=== PATIENT | male | born 1970 | race Caucasian/White ===

== ENCOUNTER 2017-04-08 04:25 | Inpatient (IN) | payer OTHER ==
[2017-04-08] VITALS (8 sets, daily range): BP systolic 124–135; BP diastolic 60–80; PULSE 75–92; RESP 17–18; TEMP 97.9–98.3; O2SAT 96–100
[2017-04-08 04:55] LABS: AUTOMATED NEUTROPHIL # 8.5 TH/MM3 (1.8-7.7); BASOPHIL % 0.3 % (0.0-2.0); EOSINOPHIL # 0.1 TH/MM3 (0-0.4); HEMATOCRIT 43.5 % (39.0-51.0); HEMO FLAGS DIFF FINAL; I-STAT POTASSIUM 4.1 MMOL/L (3.5-4.9); LYMPH % 27.2 % (9.0-44.0); LYMPHOCYTE # 3.6 TH/MM3 (1.0-4.8); MEAN CELL VOLUME 87.8 FL (80.0-100.0); MONO % 7.2 % (0.0-8.0); NEUT % 64.3 % (16.0-70.0); PLATELET COUNT 231 TH/MM3 (150-450); RED BLOOD COUNT 4.95 MIL/MM3 (4.50-5.90); RED CELL DISTRIBUTION WIDTH 13.2 % (11.6-17.2); WHITE BLOOD COUNT 13.3 TH/MM3 (4.0-11.0)
[2017-04-08] MEDS ORDERED: IOHEXOL 350 MG/ML 10 ML VIAL (for RAD DIAG) IVCONTRAST ONE (05:00)
[2017-04-08 05:05] LABS: APTT (PATIENT) 23.8 SEC (24.3-30.1); PROTHROMBIN TIME - PATIENT 10.5 SEC (9.8-11.6)
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
[2017-04-08] MEDS ORDERED: LACTATED RINGER'S 1000 ML INJ 1,000 ML IV SCH (05:24)
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
[2017-04-08] MEDS ORDERED: MISCELLANEOUS NURSING INFORMATION XX SCH (05:30)
[2017-04-08] MEDS ORDERED: ENALAPRILAT 1.25 MG/ML VIAL IV PRN (05:30)
[2017-04-08] MEDS ORDERED: ONDANSETRON HCL 4 MG/2 ML VIAL IV PRN (05:30)
[2017-04-08] MEDS ORDERED: SODIUM CHLORIDE 0.9% FLUSH 10 ML FLUSH IV FLUSH PRN (05:30)
[2017-04-08] MEDS ORDERED: MAGNESIUM HYDROXIDE SUSP 30 ML CUP PO PRN (05:30)
[2017-04-08] MEDS ORDERED: MORPHINE SULFATE 4 MG/ML INJ IV PRN (05:30)
[2017-04-08] MEDS ORDERED: ACETAMINOPHEN/HYDROcodone 325 MG/5 MG TAB PO PRN (05:30)
[2017-04-08] MEDS ORDERED: CHLORHEXIDINE GLUCONATE 2 % 1 PACK (2 CLOTHS) TOP PRN (05:30)
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
[2017-04-08] MEDS ORDERED: SODIUM CHLORIDE 0.9% FLUSH 10 ML FLUSH IVF PRN (05:45)
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
[2017-04-08] MEDS: ACETAMINOPHEN/HYDROcodone 325 MG/5 MG TAB PO PRN ×3 (06:26→21:49)
[2017-04-08] MEDS: METHOCARBAMOL 500 MG TAB PO SCH ×3 (07:45→21:48)
[2017-04-08] MEDS: SODIUM CHLORIDE 0.9% FLUSH 10 ML FLUSH IV FLUSH SCH ×2 (09:00→21:50)
[2017-04-08] MEDS: THIAMINE HCL 100 MG TAB PO SCH (09:00)
[2017-04-08] MEDS ORDERED: DOCUSATE SODIUM 100 MG CAP PO SCH (09:00)
[2017-04-08] MEDS: FAMOTIDINE 20 MG TAB PO SCH ×2 (09:00→21:48)
[2017-04-08] MEDS: MULTIVITAMIN TAB PO SCH (09:00)
[2017-04-08] MEDS: FOLIC ACID 1 MG TAB PO SCH (09:00)
[2017-04-08] MEDS: BACITRACIN TOP OINT 15 GM TUBE TOP SCH ×2 (09:01→21:49)
[2017-04-08] MEDS: LIDOCAINE HCL 5% PATCH T-DERMAL SCH (09:21)
[2017-04-08] MEDS ORDERED: LACTULOSE SYRUP 20 GM/30 ML CUP PO PRN (11:45)
[2017-04-08] MEDS ORDERED: SENN1TAB PO (15:45)
[2017-04-08] MEDS ORDERED: MAGN400S PO (15:45)
[2017-04-08] MEDS: ENOXAPARIN SODIUM 30 MG/0.3 ML SYRINGE SQ SCH (15:51)
[2017-04-08] MEDS ORDERED: REMOVE OLD LIDOCAINE PATCH T-DERMAL SCH (21:00)
[2017-04-08] MEDS: DOCUSATE SODIUM 50 MG/SENNA 8.6 MG TAB PO SCH (21:48)
[2017-04-09 01:57] VITALS: BP 135/68; PULSE 89; RESP 19; TEMP 98.1; O2SAT 96
[2017-04-09] MEDS: ENOXAPARIN SODIUM 30 MG/0.3 ML SYRINGE SQ SCH ×2 (02:59→13:00)
[2017-04-09] MEDS: ACETAMINOPHEN/HYDROcodone 325 MG/5 MG TAB PO PRN ×2 (02:59→15:35)
[2017-04-09] MEDS ORDERED: CHLORHEXIDINE GLUCONATE 2 % 1 PACK (2 CLOTHS) TOP SCH (04:00)
[2017-04-09 05:21] VITALS: BP 135/68; PULSE 65; RESP 17; TEMP 98.2; O2SAT 96
[2017-04-09] MEDS: METHOCARBAMOL 500 MG TAB PO SCH ×2 (05:28→14:00)
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
[2017-04-09 08:00] VITALS: BP 118/63; PULSE 83; RESP 18; TEMP 98.4; O2SAT 9
[2017-04-09 08:49] LABS: AUTOMATED NEUTROPHIL # 8.7 TH/MM3 (1.8-7.7); BASOPHIL % 0.3 % (0.0-2.0); EOSINOPHIL # 0.1 TH/MM3 (0-0.4); EOSINOPHIL % 0.5 % (0.0-4.0); HEMATOCRIT 45.7 % (39.0-51.0); HEMO FLAGS DIFF FINAL; LYMPH % 19.6 % (9.0-44.0); LYMPHOCYTE # 2.4 TH/MM3 (1.0-4.8); MEAN CELL VOLUME 88.7 FL (80.0-100.0); MEAN CORPUSCULAR HEMOGLOBIN 29.5 PG (27.0-34.0); MEAN CORPUSCULAR HGB CONC 33.3 % (32.0-36.0); MONO % 9.1 % (0.0-8.0); NEUT % 70.5 % (16.0-70.0); PLATELET COUNT 212 TH/MM3 (150-450); RED BLOOD COUNT 5.15 MIL/MM3 (4.50-5.90); RED CELL DISTRIBUTION WIDTH 13.8 % (11.6-17.2); WHITE BLOOD COUNT 12.3 TH/MM3 (4.0-11.0)
[2017-04-09] MEDS: LIDOCAINE HCL 5% PATCH T-DERMAL SCH (08:54)
[2017-04-09] MEDS: MULTIVITAMIN TAB PO SCH (08:55)
[2017-04-09] MEDS: DOCUSATE SODIUM 50 MG/SENNA 8.6 MG TAB PO SCH (08:55)
[2017-04-09] MEDS: THIAMINE HCL 100 MG TAB PO SCH (08:55)
[2017-04-09] MEDS: FOLIC ACID 1 MG TAB PO SCH (08:55)
[2017-04-09] MEDS: FAMOTIDINE 20 MG TAB PO SCH (08:55)
[2017-04-09] MEDS: SODIUM CHLORIDE 0.9% FLUSH 10 ML FLUSH IV FLUSH SCH (08:56)
[2017-04-09] MEDS: BACITRACIN TOP OINT 15 GM TUBE TOP SCH (08:56)
[2017-04-09 09:07] LABS: BICARBONATE 27.5 MEQ/L (21.0-32.0); POTASSIUM 4.3 MEQ/L (3.5-5.1)
[2017-04-09] MEDS ORDERED: HYDR-3516 PO (10:36)
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
[2017-04-09 12:00] VITALS: BP 125/73; PULSE 95; RESP 18; TEMP 99.5; O2SAT 98
[2017-04-09 12:19] VITALS: O2SAT 97
== END 2017-04-09 15:53 | disposition home or self-care (01) | DRG 89 ==
LOC: NEPI 04:25 → OBSVTOIN 05:28 → NEDA 05:28 → UNDOADMOB 05:39 → INTOOBSV 05:40 → OBSVTOIN 05:40 → EDBD 05:40 → N05B 13:07 → NEDA 13:07 → N05B 16:09 → UNDODISIN 04-09 15:53
PROVIDERS: ADMIT Surgery; ATTEND Surgery
PROC: 0HQ0XZZ Repair Scalp Skin, External Approach (ICD-10-PCS; principal; 2017-04-08)
DX: S06.0X9A Concussion with loss of consciousness of unspecified duration, initial encounter (principal); S22.32XA Fracture of one rib, left side, initial encounter for closed fracture; S30.1XXA Contusion of abdominal wall, initial encounter; M25.512 Pain in left shoulder; S01.01XA Laceration without foreign body of scalp, initial encounter; M25.571 Pain in right ankle and joints of right foot; M54.9 Dorsalgia, unspecified; V49.50XA Passenger injured in collision with unspecified motor vehicles in traffic accident, initial encounter
CPT/HCPCS: 70450; 71010; 71260; 72125; 72128; 72131; 72170; 73020; 73600; 74177; 80048; 82435; 82565; 82947; 84132; 84295; 84520; 85025; 85610; 85730; 86850; 86900; 86901; 90471; 94150; 94640; 94667; 96361; 96374; 96375; 99291; G0390; J1650; J2270; J7120; Q9967